=== PATIENT | female | born 1960 | race Caucasian/White ===

== ENCOUNTER → 2017-06-05 | Outpatient (CLI) | payer BC ==
[~2017-06-05] MED LIST: BIAXIN 500MG T500 MG PO; FLONASE0.05 MG/AC NS; SYNTHROID0.2 M1 PO; VIVELLE-DO0.05 MG/24 TD
== END ==
LOC: MC.RAD 06:48
DX: Z12.31 Encounter for screening mammogram for malignant neoplasm of breast (principal)

== ENCOUNTER → 2018-03-12 | Outpatient (CLI) | payer BC | LOC: COL.VAS 10:44 | DX: M79.604 Pain in right leg (principal) ==

== ENCOUNTER → 2018-06-18 | Outpatient (CLI) | payer BC | LOC: MC.RAD 06:53 | DX: Z12.31 Encounter for screening mammogram for malignant neoplasm of breast (principal) ==

== ENCOUNTER 2019-03-02 20:04 | Observation (INO) | payer BC ==
[~2019-03-02] VITALS: Ht 172.7 cm; Wt 97.4 kg
[2019-03-02 21:50] LABS: BASO % 0.3 % (0.0-2.0); EOS % 0.2 % (0-4.0); GRAN # 9.1 (1.4-6.5); GRAN % 83.5 % (42.2-75.2); HEMATOCRIT 38.9 % (37.0-47.0); HEMOGLOBIN 13.4 g/dl (12.5-16.0); LYMPH # 1.2 (1.2-3.4); LYMPH % 10.7 % (20.0-51.0); MEAN CELL VOLUME 91 fl (80.0-100.0); MEAN CORPUSCULAR HEMOGLOBIN 31 pg (27.0-31.0); MEAN CORPUSCULAR HGB CONC 34 g/dl (33.0-37.0); MONO # 0.6 (0.1-0.6); PLATELET COUNT 223 K/mm3 (130-400); RED BLOOD COUNT 4.29 M/mm3 (4.10-5.30); REDCELL DISTRIBUTION WIDTH-CV 12.2 % (11.5-14.5)
[2019-03-02 22:04] LABS: ALBUMIN 3.9 gm/dL (3.5-5.0); BILIRUBIN,TOTAL 0.4 mg/dL (0.0-1.0); C-REACTIVE PROTEIN 3.2 mg/dL (0.0-0.9); CALCIUM 9.2 mg/dL (8.4-10.2); CREATININE, serum 0.88 (0.52-1.25); POTASSIUM 3.6 mmol/L (3.4-5.0); TOTAL PROTEIN 6.9 gm/dL (6.4-8.2)
[2019-03-02 22:56] LABS: COLLECTION METHOD CLEAN CATCH
[2019-03-02 23:02] LABS: MUCOUS Present /lpf; PH 6 (5-8); SQUAMOUS EPITHELIAL 0-2 /hpf; URINE APPEARANCE Clear; URINE BACTERIA None Seen /hpf; URINE BILIRUBIN Negative (NEGATIVE); URINE BLOOD 1+ (NEGATIVE); URINE COLOR Straw; URINE GLUCOSE Negative (NEGATIVE); URINE KETONE Trace (NEGATIVE); URINE LEUKOCYTE ESTERASE Negative (NEGATIVE); URINE NITRATE Negative (NEGATIVE); URINE PROTEIN(semi-quant) Negative (NEGATIVE); URINE RBC 0-2 /hpf; URINE UROBILINOGEN Negative (NEGATIVE)
[2019-03-02] MEDS ORDERED: blood pressure (23:59)
[2019-03-02] MEDS ORDERED: CONTRAVE1 TER PO (23:59)
[2019-03-03] VITALS (9 sets, daily range): BP systolic 110–129; BP diastolic 57–81; PULSE 68–86; TEMP 97.7–98.4
--- NOTE | 2019-03-03 01:03 | NUR ---
Patient brought to room via wheelchair by ER staff. Assessment completed. Having mild right sided abd discomfort that feels numb. Denies N/V. Oriented to room. Verbalizes understanding and denies further needs at this time.
[2019-03-03] MEDS ORDERED: ESTROGEN (01:09)
[2019-03-03] MEDS ORDERED: ESTRACE 1MG1 MG/TAB PO (02:51)
--- NOTE | 2019-03-03 04:04 | NUR ---
Lying in bed with eyes closed. Opens eyes when enter room. Denies pain or any N/V. Denies any further concerns or needs at this time.
[2019-03-03] MEDS ORDERED: PRINIVIL20 MG PO (09:28)
--- NOTE | 2019-03-03 11:15 | NUR ---
Patient has been doing well this am. She showered with the surgical scrub this morning. She is going down for surgery at this time. Consent signed and on the chart. followed patient down to surgery.
--- NOTE | 2019-03-03 12:45 | NUR ---
Patient has come back from surgery. Denies pain and nausea. Explained discharge plan. at bedside. Patient did not want to eat at this time. Just wanted water at this time. No other changes at this time. Call light within reach.
[2019-03-03] MEDS ORDERED: NORCO 325 MG-51 TAB PO (15:08)
--- NOTE | 2019-03-03 15:50 | NUR ---
Patient is discharging home. Discharge instructions discussed with patient. No questions verbalized. INT discontinued. Copies of discharge instructions sent with patient. Explained to call for her follow up appointment on Monday. All belongings packed. Patient walked out with Deb MCGOWAN.
== END 2019-03-03 13:45 | disposition home or self-care (01) ==
LOC: COL.ER 20:04 → SURG 03-03 00:04
PROVIDERS: Emergency Medicine; ADMIT Surgery
DX: K35.80 Unspecified acute appendicitis (principal); I10 Essential (primary) hypertension; Z90.710 Acquired absence of both cervix and uterus; Z79.52 Long term (current) use of systemic steroids
CPT/HCPCS: A4216; G0008; G0378; J0690; J0696; J1100; J1885; J2270; J2405; J2704; J2710; J3010; J7030; J7120; Q9967

== ENCOUNTER → 2019-09-23 | Outpatient (CLI) | payer BC ==
[~2019-09-23] MED LIST changes: +CONTRAVE1 TER PO; +ESTRACE 1MG1 MG/TAB PO; +ESTROGEN; +NORCO 325 MG-51 TAB PO; +PRINIVIL20 MG PO; +blood pressure
== END ==
LOC: MC.RAD 06:58
DX: Z12.31 Encounter for screening mammogram for malignant neoplasm of breast (principal)

== ENCOUNTER → 2020-10-26 | Outpatient (CLI) | payer BC | LOC: MC.RAD 06:54 | DX: Z12.31 Encounter for screening mammogram for malignant neoplasm of breast (principal); N63.10 Unspecified lump in the right breast, unspecified quadrant ==

== ENCOUNTER → 2020-11-12 | Outpatient (CLI) | payer BC | LOC: MC.RAD 10-29 07:45 | DX: N63.11 Unspecified lump in the right breast, upper outer quadrant (principal) ==

== ENCOUNTER → 2021-06-24 | Outpatient (CLI) | payer BC | LOC: MC.RAD 10:47 | DX: N63.10 Unspecified lump in the right breast, unspecified quadrant (principal) ==

== ENCOUNTER → 2021-12-02 | Outpatient (CLI) | payer BC | LOC: MC.RAD 11-05 07:00 | DX: Z12.31 Encounter for screening mammogram for malignant neoplasm of breast (principal) ==

== ENCOUNTER → 2024-02-09 | Outpatient (CLI) | payer OTHER ==
[2004-12-06 11:31] VITALS: BP 148/101; PULSE 92; TEMP 97.7
== END ==
LOC: MC.RAD 07:27
DX: Z12.31 Encounter for screening mammogram for malignant neoplasm of breast (principal)